=== PATIENT | female | born 1940 | race Caucasian/White ===

== ENCOUNTER → 2019-03-12 | Outpatient (CLI) | payer MEDICARE ==
[2019-03-12 13:14] LABS: HCT 45.6 % (34.0-46.0); HGB 15.4 gm/dL (11.4-16.0); MCHC 33.8 g/dL (31.0-37.0); MCV 91.8 fL (80.0-100.0); Platelet Count 285 k/uL (150-450); RBC 4.96 m/uL (3.80-5.40); RDW 11.7 % (11.5-15.5); WBC 8.5 k/uL (3.8-10.6)
[2019-03-12 13:15] LABS: Appearance,Urine Clear (Clear); Bilirubin,Urine Negative (Negative); Blood,Urine Negative (Negative); Color,Urine Light Yellow; Glucose,Urine (UA) Negative (Negative); Ketones,Urine Negative (Negative); Leukocyte Esterase,Urine Negative (Negative); Nitrite,Urine Negative (Negative); Protein,Urine Negative (Negative); Specific Gravity,Urine 1.014 (1.001-1.035); Urobilinogen,Urine <2.0 mg/dL (<2.0)
[2019-03-12 13:25] LABS: Albumin 4.6 g/dL (3.5-5.0); INR 0.9 (<1.2); Partial Thromboplastin Time 23.7 sec (22.0-30.0); Potassium 4.3 mmol/L (3.5-5.1); Total Bilirubin 0.6 mg/dL (0.2-1.3); Total Protein 7.7 g/dL (6.3-8.2)
== END | disposition home or self-care (01) ==
LOC: LABPAT 10:38
PROVIDERS: ATTEND Orthopaedic Surgery Sports Medicine
DX: Z01.812 Encounter for preprocedural laboratory examination (principal); Z79.01 Long term (current) use of anticoagulants
CPT/HCPCS: 36415; 80053; 81003; 85027; 85610; 85730; 87070

== ENCOUNTER 2019-03-31 13:12 | Day surgery (SDC) | payer MEDICARE ==
[2019-03-16 10:16] VITALS: BMI 25.3
[~2019-03-31 13:12] MED LIST: ACETAMINOPHEN TAB 500 MG TAB PO ONE; DEXAMETHASONE SOD PHOSPHATE 10 MG/ML 1 ML VIAL IV ONE; GABAPENTIN 300 MG CAP PO ONE; HYDROmorphone 0.5 MG/0.5 ML SYRINGE IVP PRN; LIDOCAINE 1% 20 ML VIAL (10MG/ML) FOR IV START INTRADERMA PRN; MELOXICAM 7.5 MG TAB PO ONE; MIDAZOLAM 2 MG/2 ML VIAL IV PRN; ONDANSETRON 4 MG/2 ML VIAL IVP ONE; TRANEXAMIC ACID 1,000 MG in SODIUM CHLORIDE 0.9% 100 ML IVPB ONE; fentaNYL (PF) 50 MCG/ML 2 ML AMP IVP PRN
[2019-03-31 13:52] LABS: Glucose,Whole Blood 96 mg/dL (75-99)
[2019-03-31] MEDS: LACTATED RINGERS 1,000 ML IV SCH ×2 (13:56→20:38)
[2019-03-31] MEDS ORDERED: fentaNYL (PF) 50 MCG/ML 2 ML AMP IV ONE (15:24)
[2019-03-31] MEDS ORDERED: MIDAZOLAM 2 MG/2 ML VIAL IV ONE (15:24)
[2019-03-31] MEDS ORDERED: ROPIVACAINE 0.2%-NS ON-Q PUMP 1,090 MG, EMPTY PAIN BALL 1 EACH MISCELLANE PRN (16:13)
--- NOTE | 2019-03-31 16:15 | P.ANPRN ---
Procedure Note - Anesthesia - Nerve Block Performed Left Adductor Canal Infusion Time Out Performed: Yes Date of Procedure: 03/31/19 Procedure Start Time: 15:25 Location of Patient: PreOp Indication: Acute Post-Operative Pain, Requested by Surgeon Specifically requested for management of pain by DrVíctor: Jaycob Castorena Sedation Type: Sedate with meaningful contact maintained Preparation: Sterile Prep Position: Supine Catheter Depth at Skin (cm): 8 Catheter: Indwelling Needle Types: Pajunk Needle Gauge: 18 Ultrasound used to visualize needle placement: Yes Ultrasound used to observe medication spread: Yes Injectate: 0.5% Ropivacaine (see comment for volume) (20 cc) Blood Aspirated: No Pain Paresthesia on Injection Noted: No Resistance on Injection: Normal Image Stored and Saved: Yes Events: Uneventful and Well Tolerated
[2019-03-31] MEDS: ROPIVACAINE 246.25 MG, EPINEPHrine 0.5 MG, KETOROLAC 30 MG, cloNIDine HCL/PF 80 MCG, WA... MISCELLANE ONE ×10 (16:47→17:30)
[2019-03-31] MEDS ORDERED: DIAZEPAM 5 MG TAB PO PRN (16:49)
[2019-03-31] MEDS ORDERED: NA PHOS,M-B/NA PHOS,DI-BA 133 ML ENEMA RECTAL PRN (16:49)
[2019-03-31] MEDS ORDERED: BISACODYL 10 MG SUPP RECTAL PRN (16:49)
[2019-03-31] MEDS ORDERED: HYDROcodone/APAP 5-325MG 1 EACH TAB PO PRN (16:49)
[2019-03-31] MEDS ORDERED: MAGNESIUM HYDROXIDE 2,400 MG/10 ML CUP PO PRN (16:49)
[2019-03-31] MEDS ORDERED: TEMAZEPAM 15 MG CAP PO PRN (16:49)
[2019-03-31] MEDS ORDERED: hydrOXYzine PAMOATE 25 MG CAP PO PRN (16:49)
[2019-03-31] MEDS ORDERED: NALOXONE 0.4 MG/ML 1 ML VIAL IV PRN (16:49)
[2019-03-31] MEDS ORDERED: ACETAMINOPHEN TAB 325 MG TAB PO PRN (16:49)
[2019-03-31] MEDS ORDERED: traMADol 50 MG TAB PO PRN (16:49)
[2019-03-31] MEDS ORDERED: ONDANSETRON 4 MG/2 ML VIAL IVP PRN (16:49)
[2019-03-31] MEDS ORDERED: HYDROmorphone 0.5 MG/0.5 ML SYRINGE IVP PRN ×3 (16:49)
[2019-03-31] MEDS ORDERED: PROPOFOL 10 MG/ML 50 ML VIAL IV ONE (16:56)
[2019-03-31] MEDS ORDERED: MIDAZOLAM 2 MG/2 ML VIAL ONE (16:56)
[2019-03-31] MEDS ORDERED: TRANEXAMIC ACID 1,000 MG/10 ML VIAL ONE (16:56)
[2019-03-31] MEDS ORDERED: SODIUM CHLORIDE 0.9% 100 ML BAG ONE (16:56)
[2019-03-31] MEDS ORDERED: fentaNYL (PF) 50 MCG/ML 2 ML AMP ONE (16:56)
[2019-03-31] MEDS: ceFAZolin 3,000 MG in SODIUM CHLORIDE 0.9% IRRIGATIO 3,000 ML IRRIGATION ONE ×2 (16:58→20:38)
[2019-03-31] MEDS ORDERED: ceFAZolin 3,000 MG in SODIUM CHLORIDE 0.9% IRRIGATIO 3,000 ML IRRIGATION ONE ×4 (16:58)
[2019-03-31] MEDS ORDERED: LACTATED RINGERS 1,000 ML IV ONE (17:48)
--- NOTE | 2019-03-31 19:28 | XR ---
EXAMINATION TYPE: XR knee limited LT DATE OF EXAM: 03/31/2019 COMPARISON: NONE HISTORY: Postop knee surgery TECHNIQUE: 2 views FINDINGS: There is a left knee prosthesis. Components are in anatomic position. IMPRESSION: No complicating process.
[2019-03-31] MEDS: ASPIRIN 325 MG TAB PO SCH (20:19)
[2019-03-31] MEDS ORDERED: SENNOSIDES-DOCUSATE SODIUM 1 EACH TAB PO SCH (21:00)
--- NOTE | 2019-03-31 22:17 | OP ---
OPERATIVE REPORT DATE OF PROCEDURE: 03/31/2019. SURGEON: Jaycob Castorena MD. INSEAM TRIMMING MACHINE OPERATOR: Remigio MARQUEZ. PREOPERATIVE DIAGNOSIS: Left knee osteoarthrosis. POSTOPERATIVE DIAGNOSIS: Left knee osteoarthrosis. OPERATION: Left total knee arthroplasty. ANESTHESIA: Spinal with sedation. ESTIMATED BLOOD LOSS: 100 mL. TOURNIQUET TIME: 42 minutes at 250 mmHg. COMPLICATIONS: None apparent. DRAINS: None. DISPOSITION: Postanesthesia care unit. INDICATIONS: Melonie is a very pleasant 78-year-old female with longstanding history of left knee pain. History and physical examination are consistent with advanced left knee osteoarthrosis. She has been through significant operative management up to this point. Further treatment options were discussed and she has decided to go forward with the left total knee arthroplasty. The risks of the procedure were discussed with her in detail. These risks include, but are not limited to risk of infection, nerve damage, bleeding, pain, and a small risk of deep vein thrombosis which could lead to fatal pulmonary embolism. There is also risk of loosening of the implant which could require revision operation. The patient understands these risks. All of her questions were answered to her satisfaction. An appropriate informed consent was obtained. DESCRIPTION OF THE PROCEDURE: Patient was identified in preop holding area. Surgical sites marked by both the patient and myself. She was given 2 g of Ancef IV for prophylactic purposes. She was then transferred to the operative suite. She was placed supine on the operative table. A spinal anesthetic was then administered and dosed per the Anesthesia Department without apparent complication. Examination under anesthesia was then performed. The patient was 2-3 degrees shy of full extension. She had 100 degrees of flexion. The medial collateral ligament, lateral collateral ligament and posterior cruciate ligaments were stable. Tourniquet was then placed high on the left upper thigh well-padded in preparation for surgery. The patient's left lower extremity was then prepped and draped in usual sterile fashion. Standard surgical pause undertaken to ensure that we were operating on the correct site and that appropriate preoperative antibiotics were given. All staff in the room were in agreement and we proceeded. The outlines of the patella were marked surgical pen. A planned 12 cm vertical incision centered over the patella was marked with a surgical pen. Leg was then exsanguinated with an Esmarch dressing. The knee was then flexed and the tourniquet was inflated to 250 mmHg. The total tourniquet time for the procedure was 42 minutes Incision was then made with a 10 blade scalpel. Dissection carried down sharply overlying fascia. Great care was taken to minimize the skin flaps. The knee was then exposed using a standard medial parapatellar approach. A small cuff of quadriceps tendon was then left for suturing. She was in a bit of varus preoperatively. A standard medial release was then made. Superficial medial collateral ligament dissected off the bone around the posterior aspect of the proximal tibia. The medial meniscus was then excised as well. Lateral meniscus was also released anteriorly. The leg was then externally rotated. The patella was everted. The knee was flexed. The retractors were then placed to protect the collateral ligaments. I then proceeded to remove the infrapatellar fat pad. This was excised sharply tangentially with the fibers of the patellar tendon. I then proceeded to remove peripheral osteophytes. This was done with a rongeur. I then proceed with the distal femoral resection. She did have near full extension. Planned 9 mm resection was then done. The femoral canal was then entered in the midline of the femur approximately 10 mm anterior to the origin of the posterior cruciate ligament. The maty was then advanced down the center of the femur and placed intramedullary. Based on the preoperative radiographs, the angle between the anatomic and mechanical axis of the femur was approximately 4-5 degrees. The valgus angle of the distal femoral cutting guide was then set at 4 degrees for the left knee. The distal femoral cutting guide was then advanced over the intramedullary maty. This was seated firmly against the femur. I then as mentioned planned to take 9 mm off the distal femur. The cutting block was then secured onto the femur with pins. The jig was removed. The distal femoral cut was made through the slot of the block. The pins were then removed. The distal femoral cutting block was removed. The accuracy of the distal femoral cuts was checked with 2 flat bars. I then proceed with femoral sizing. Posterior referencing sizing guide was held firmly against the resected distal surface of the femur. The posterior condyles were resting on the posterior plane of the guide. The sizing stylus was then placed onto the anterior femur. The size was measured as a size 7. I then assessed for femoral rotation. Plan was for 3 degrees of external rotation. Three degrees of external rotation was placed onto the jig. These holes were then marked. I then confirmed the rotation by 3 separate methods. This was done using the epicondylar axis as well as Whitesides line and posterior referencing. It was deemed that the external rotation was proper. I then went forward with placement of the femoral cutting block. This was placed over the previously placed pin holes. The Ethan wing was then placed onto the anterior slots to ensure that we would not notch the anterior femur with the anterior femoral cut. I then proceed with the anterior femoral cut. This was flush with the anterior cortex of the femur. The posterior cuts were then made followed by the anterior chamfer cut, then the posterior chamfer cut. The cutting block was then removed. Throughout the resection, the collateral ligaments were protected with retractors. I then placed a trial size 7 femur. It was slightly wide mediolateral but the narrow fit was fit very well and the end fit flush with the distal end of the femur. The drill holes were then made. I then proceed with tibial cut. I planned for cruciate-retaining knee. The guide was placed and set for varus valgus and for slope. The height set for approximate 2 mm resection from the medial tibial plateau which was the lower side. I was happy with the alignment and amount of resection. The cutting block was then pinned to the proximal tibia. The alignment maty was removed and the proximal tibia was resected with a reciprocating saw. Again this was done with retractors protecting the collateral ligaments as well as the posterior cruciate ligament. I then proceeded to evaluate the flexion extension gaps. A 10 mm block was placed. The flexion-extension gaps were equal. I then proceeded with resection of posterior osteophytes. She had very extensive posterior osteophytes. This was done using a curved osteotome. This resected the posterior osteophytes and posterior capsule stripping was done off the posterior aspect of the femur. The osteophytes were then removed. I then proceed to resection of patella. The thickness of patella was measured using the caliper. The thickness was 22 mm. The thickness of the anticipated patellar dome was taken into account. Resection was then performed and confirmed to be equal in 4 quadrants using a caliper. Approximately 14 mm of bone remained after resection. A 29 x 8 standard patellar trial was then placed. The holes were drilled. The trial was then placed. I then proceeded to size the tibial plate. A size C tibial plate fit very nicely. I then placed the trial femur in the tibial tray and patellar button. A 10 mm trial tibial insert was also placed. The components fit very nicely. She had full extension and flexion. The extension and flexion gaps were equal and stable to both varus and valgus stress. The patella tracked appropriately. The tibial tray rotation was marked with a Bovie. This was externally rotated properly. I then proceed with tibial preparation. I first drilled the femoral holes and removed femoral component. The tibial tray was then set for proper external rotation as well as mediolateral placement onto the tibia. It was then pinned into place. I then proceeded with punching the keel. I then decided to proceed with cementing of all of our components. The knee was thoroughly irrigated with sterile saline solution via pulse lavage. The lateral geniculate artery was identified and cauterized. All blood was removed from the bone of the tibia femur and patella with pulse lavage. I then proceed with cementing. Two packs of antibiotic bone cement prepared on the back table by the surgical processor. I then proceed with cementing the tibia 1st. Cement was impacted into the keel as well as deeply seated in the bone. A second coat of cement was then placed. The tibia was then impacted into place. Excess cement was removed with Clary's and Joker's. I then proceed with cementing of the femoral component. The femoral component was also cemented using standard technique. Excess cement was removed. A 10 mm trial insert was then placed into the knee. It was brought into full extension with a constant axial load placed until the cement had hardened. The patellar component was then cemented. This was held firmly with a compressive device until the cement had dried. When the cement had dried, the knee was taken out of extension. All excess cement was removed from around the prosthesis. I then trialed the knee with a 10 mm insert. Flexion extension gaps were appropriate. The knee was stable. It came into full extension. I decided to go forward with a 10 mm cross-linked cruciate-retaining tibial insert. Polyethylene was then placed on the tibial tray and locked into place. The knee was then reduced. The knee was again further irrigated with sterile saline solution with antibiotic added. The tourniquet was then deflated. Total tourniquet time for the procedure was 42 minutes at 250 mmHg. Final components were Laurita Persona size 7 narrow cruciate-retaining femoral component, size C tibial tray and a 10 mm medial congruent cruciate-retaining polyethylene insert and a 29 x 8 patella. I then proceeded with closure. Again, the knee was thoroughly irrigated. The quadriceps tendon and medial retinaculum were reapproximated with #2 Ethibond suture. The extensor mechanism was then closed with a running number #2 Quill suture. Subcutaneous tissues were then closed with 2-0 Vicryl interrupted suture. The skin was closed with a running 3-0 Quill suture. Dermabond was applied to the incision. Sterile compressive dressings were then applied. All sponge and needle counts were deemed correct prior to closure. The patient tolerated procedure without apparent complication. She was transferred to recovery room in stable condition. MMODL / IJN: [id number] /
[2019-04-01 02:03] VITALS: RESP 17; TEMP 98
[2019-04-01] MEDS: LACTATED RINGERS 1,000 ML IV SCH ×3 (03:48→04:35)
[2019-04-01 07:00] LABS: Basophils % (A) 0 %; Eosinophils % (A) 0 %; HCT 39.9 % (34.0-46.0); HGB 13.4 gm/dL (11.4-16.0); Lymphocytes % (A) 6 %; MCH 31.1 pg (25.0-35.0); MCHC 33.6 g/dL (31.0-37.0); MCV 92.4 fL (80.0-100.0); Monocytes # (A) 0.7 k/uL (0-1.0); Monocytes % (A) 4 %; Neutrophils # (A) 14.9 k/uL (1.3-7.7); Neutrophils % (A) 90 %; Platelet Count 275 k/uL (150-450); RBC 4.32 m/uL (3.80-5.40); RDW 11.8 % (11.5-15.5); WBC 16.6 k/uL (3.8-10.6)
[2019-04-01] MEDS: ASPIRIN 325 MG TAB PO SCH (07:33)
[2019-04-01] MEDS: HYDROcodone/APAP 10-325MG 1 EACH TAB PO PRN ×2 (07:33→12:37)
[2019-04-01 07:35] VITALS: BP 113/74; PULSE 70
--- NOTE | 2019-04-01 11:14 | P.DS ---
Providers Expected date of discharge: 04/01/19 Attending physician: Jaycob Castorena Consults: 03/31/19 16:49 Consult Physician Routine Consulting Provider: Christ Benitez Consult Reason/Comments: post op medical management Do you want consulting provider notified?: Yes Primary care physician: Marii Woods - Discharge Diagnosis(es) (1) Status post total left knee replacement Patient was admitted to the OR on 03/31/2019 to undergo a left total knee arthroplasty. She had failed conservative measures as an outpatient desired to proceed with elective surgery after given informed consent. She underwent the above procedure which she tolerated well without complication. Postoperative hospital remained without complication. On day of discharge she is afebrile, vital signs stable, labs within acceptable ranges, tolerating by mouth meds and diet, voiding without difficulty, positive flatus, denies abdominal pain or calf pain, pain is controlled on oral pain medication and has no new complaints. Wound is benign, neurovascular status is intact, calf is soft and nontender, abdomen soft and nontender. Review of systems is negative for numbness, tingling, fever, chills, chest pain, shortness of breath, nausea, vomiting, dizziness, headaches, slurred speech or other Current Visit: Yes Status: Acute Priority: Medium Procedures: Left TKA Patient Condition at Discharge: Good Plan - Discharge Summary Discharge Rx Participant: No New Discharge Prescriptions: New Aspirin 325 mg PO BID #60 tab Docusate [Colace] 100 mg PO BID #60 capsule HYDROcodone/APAP 7.5-325MG [Mccarr 7.5-325] 1 - 2 each PO Q6HR PRN #56 tab PRN Reason: Pain No Action Estradiol Cream [Estrace Cream 0.01%] 1 gm VAGINAL Q3D predniSONE 5 mg PO Q2D Triamcinolone 0.5% Cream [Kenalog 0.5% Cream] 1 applic TOPICAL DAILY PRN PRN Reason: Rash Naproxen [Naprosyn] 500 mg PO Q12HR PRN PRN Reason: Pain Methnamine 1 gm PO DAILY Spironolactone [Aldactone] 25 mg PO DAILY Levothyroxine Sodium [Synthroid] 75 mcg PO QAM Atorvastatin [Lipitor] 20 mg PO DAILY Tavares-3 Fatty Acids [Tavares-3] 500 mg PO DAILY Calcium 1200mg/Vit D3 25 Mcg 1 tab PO DAILY Melatonin 10 mg PO HS Discharge Medication List Atorvastatin [Lipitor] 20 mg PO DAILY 03/16/19 [History] Calcium 1200mg/Vit D3 25 Mcg 1 tab PO DAILY 03/16/19 [History] Estradiol Cream [Estrace Cream 0.01%] 1 gm VAGINAL Q3D 03/16/19 [History] Levothyroxine Sodium [Synthroid] 75 mcg PO QAM 03/16/19 [History] Methnamine 1 gm PO DAILY 03/16/19 [History] Naproxen [Naprosyn] 500 mg PO Q12HR PRN 03/16/19 [History] Tavares-3 Fatty Acids [Tavares-3] 500 mg PO DAILY 03/16/19 [History] Spironolactone [Aldactone] 25 mg PO DAILY 03/16/19 [History] Triamcinolone 0.5% Cream [Kenalog 0.5% Cream] 1 applic TOPICAL DAILY PRN 03/16/19 [History] predniSONE 5 mg PO Q2D 03/16/19 [History] Melatonin 10 mg PO HS 03/17/19 [History] Aspirin 325 mg PO BID #60 tab 04/01/19 [Rx] Docusate [Colace] 100 mg PO BID #60 capsule 04/01/19 [Rx] HYDROcodone/APAP 7.5-325MG [Mccarr 7.5-325] 1 - 2 each PO Q6HR PRN #56 tab 04/01/19 [Rx] Follow up Appointment(s)/Referral(s): [facility], [NON-STAFF] - Marii Woods MD [Primary Care Provider] - 04/06/19 8:45 am Jaycob Castorena MD [STAFF PHYSICIAN] - 04/09/19 1:15 pm Activity/Diet/Wound Care/Special Instructions: Keep wound clean and dry Take meds as directed Follow-up with Dr. Castorena in office Weight bear as tolerated May shower in 3 days if no bleeding Discharge Disposition: HOME WITH HOME HEALTH SERVICES
--- NOTE | 2019-04-01 11:44 | P.PN ---
Progress Note - Text 04/01 706am 78-year-old female status post total knee replacement. Patient has an On-Q pump for postop pain control, she was seen and evaluated for pain control, she has a VAS of 2. Doing very well plan to continue On-Q pump infusion
[2019-04-01] MEDS ORDERED: ATORVASTATIN 20 MG TAB PO SCH (13:15)
[2019-04-01] MEDS ORDERED: predniSONE 5 MG TAB PO SCH (14:00)
[2019-04-02] MEDS ORDERED: LEVOTHYROXINE 75 MCG TAB PO SCH (06:30)
[2019-04-02] MEDS ORDERED: MULTIVITAMINS, THERA 1 EACH TAB PO SCH (12:00)
--- NOTE | 2019-04-02 17:20 | P.CONS ---
History of Present Illness - Reason for Consult Consult date: 04/01/19 Medical management Requesting physician: Jaycob Castorena - Chief Complaint Left knee surgery - History of Present Illness Consultation: This is a pleasant 78-year-old patient of Dr. Faviola Woods. Chronic stable medical conditions include hypertension, hypothyroid, hyperlipidemia, granuloma annulare. Patient has undergone left total knee arthroplasty. Pain is reasonably controlled. No nausea vomiting. No chest pain. Did tolerate her diet. Had been up for therapy. Review of systems: GEN.: None EYES: None HEENT: None NECK: None RESPIRATORY: None CARDIOVASCULAR: None GASTROINTESTINAL: None GENITOURINARY: None MUSCULOSKELETAL: Joint pains LYMPHATICS: None HEMATOLOGICAL: None PSYCHIATRY: None NEUROLOGICAL: None Past medical history to include: Hyperlipidemia, hypertension, hypothyroid, granuloma annulare Social history: Does not smoke or drink alcohol Physical examination: VITAL SIGNS: 98, 70, 17, 113/74, 96% on room air GENERAL: BMI 25.8, sitting up comfortable. EYES: Pupils equal. Conjunctiva normal. HEENT: External appearance of nose and ears normal, oral cavity grossly normal. NECK: JVD not raised; masses not palpable. HEART: First and second heart sounds are normal; no edema. LUNGS: Respiratory rate normal; clear to auscultation. ABDOMEN: Soft, nontender, liver spleen not palpable, no masses palpable. PSYCH: Alert and oriented x3; mood and affect normal. MUSCULOSKELETAL: Evidence of OA especially in the hands, dressing over the left knee NEUROLOGICAL: Cranial nerves grossly intact; no facial asymmetry, power and sensation grossly intact. LYMPHATICS: No lymph nodes palpable in the axilla and neck INVESTIGATIONS, reviewed in the clinical context: White count 16.6 hemoglobin 13.4 platelets 275 Lab work from 03/12/2019 shows hemoglobin of 15.4 potassium of 4.3 creatinine 0.8 to Assessment: -Left total knee arthroplasty -Primary osteoarthritis -Hyperlipidemia -Essential hypertension -Hypothyroid -Granuloma annulare Plan: Home medications were resumed. Care was discussed with the patient. Patient's aspirin for DVT prophylaxis per the primary team. Thank you Dr. Castorena Past Medical History Past Medical History: Hyperlipidemia, Hypertension, Skin Disorder, Thyroid Disorder Additional Past Medical History / Comment(s): current steroid use for tx of gr anuloma annulare rash,hx UTIs History of Any Multi-Drug Resistant Organisms: None Reported Past Surgical History: Appendectomy, Cholecystectomy, Hysterectomy Additional Past Surgical History / Comment(s): rachel cataracts Past Anesthesia/Blood Transfusion Reactions: Postoperative Nausea & Vomiting (PONV) Additional Past Anesthesia/Blood Transfusion Reaction / Comm: no hx blood transfusion Past Psychological History: No Psychological Hx Reported Smoking Status: Never smoker Past Alcohol Use History: None Reported Past Drug Use History: None Reported - Past Family History Mother Family Medical History: Cancer Additional Family Medical History / Comment(s): ovarian Father Family Medical History: Myocardial Infarction (OR) Additional Family Medical History / Comment(s): in 50's Medications and Allergies Home Medications Medication Instructions Recorded Confirmed Type Atorvastatin [Lipitor] 20 mg PO DAILY 03/16/19 03/31/19 History Calcium 1200mg/Vit D3 25 Mcg 1 tab PO DAILY 03/16/19 03/31/19 History Estradiol Cream [Estrace Cream 1 gm VAGINAL Q3D 03/16/19 03/31/19 History 0.01%] Levothyroxine Sodium [Synthroid] 75 mcg PO QAM 03/16/19 03/31/19 History Methnamine 1 gm PO DAILY 03/16/19 03/31/19 History Caldwell-3 Fatty Acids [Caldwell-3] 500 mg PO DAILY 03/16/19 03/31/19 History Spironolactone [Aldactone] 25 mg PO DAILY 03/16/19 03/31/19 History Triamcinolone 0.5% Cream [Kenalog 1 applic TOPICAL DAILY PRN 03/16/19 03/31/19 History 0.5% Cream] predniSONE 5 mg PO Q2D 03/16/19 03/31/19 History Melatonin 10 mg PO HS 03/17/19 03/31/19 History Aspirin 325 mg PO BID #60 tab 04/01/19 Rx Docusate [Colace] 100 mg PO BID #60 capsule 04/01/19 Rx HYDROcodone/APAP 7.5-325MG [[place] 1 - 2 each PO Q6HR PRN #56 tab 04/01/19 Rx 7.5-325] Allergies Allergy/AdvReac Type Severity Reaction Status Date / Time amoxicillin Allergy Rash/Hives Verified 03/31/19 13:43 cephalexin [From Keflex] Allergy Rash/Hives Verified 04/01/19 07:35 Sulfa (Sulfonamide Allergy Rash/Hives Verified 03/31/19 13:43 Antibiotics) coconut oil AdvReac headache Verified 03/31/19 13:43 codeine AdvReac Nausea & Verified 03/31/19 13:43 Vomiting tree nut [Pecan] AdvReac headache Verified 03/31/19 13:43 Physical Exam Vitals: Vital Signs Temp Pulse Pulse Resp BP Pulse Ox 04/01/19 06:58 98.0 F 70 17 113/74 96 04/01/19 02:02 98.0 F 86 17 116/73 95 04/01/19 00:00 82 18 03/31/19 21:45 91 124/77 94 L 03/31/19 21:30 94 131/65 03/31/19 21:15 97 132/71 95 03/31/19 21:00 94 136/68 95 03/31/19 20:45 94 133/81 96 03/31/19 20:30 90 137/78 95 03/31/19 20:15 96 124/82 95 03/31/19 20:00 89 121/77 95 03/31/19 19:45 97.8 F 91 127/71 99 03/31/19 19:31 83 16 111/56 97 03/31/19 19:16 83 16 121/58 97 03/31/19 19:04 86 13 117/58 96 03/31/19 18:48 97.1 F L 91 13 119/83 96 03/31/19 13:36 98.7 F 94 16 178/82 97 Intake and Output 03/31/19 04/01/19 04/01/19 22:59 06:59 14:59 Intake Total 1201 240 Output Total 100 Balance 1101 240 Intake: IV 901 Intake, IV Titration 300 Amount Lactated Ringers 1,000 ml 300 @ 100 mls/hr IV .Q10H [facility] Rx#:[id number] Oral 240 Output: Estimated Blood Loss 100 Other: Voiding Method Toilet # Voids 1 Weight 66 kg Results CBC & Chem 7: 04/01/19 06:31 Labs: Abnormal Lab Results - Last 24 Hours (Table) 04/01/19 Range/Units 06:31 WBC 16.6 H (3.8-10.6) k/uL Neutrophils # 14.9 H (1.3-7.7) k/uL
== END 2019-04-01 13:22 | disposition home health service (06) ==
LOC: OR 13:12 → 4SSUR 19:00 → OR 04-01 13:22
PROVIDERS: ATTEND Orthopaedic Surgery Sports Medicine
DX: M17.0 Bilateral primary osteoarthritis of knee (principal); I10 Essential (primary) hypertension; E03.9 Hypothyroidism, unspecified; E78.5 Hyperlipidemia, unspecified; Z79.899 Other long term (current) drug therapy; Z90.49 Acquired absence of other specified parts of digestive tract; Z90.710 Acquired absence of both cervix and uterus; Z98.41 Cataract extraction status, right eye; Z98.42 Cataract extraction status, left eye; Z88.2 Allergy status to sulfonamides; Z88.5 Allergy status to narcotic agent; Z88.1 Allergy status to other antibiotic agents; Z88.0 Allergy status to penicillin; Z91.018 Allergy to other foods; Z82.49 Family history of ischemic heart disease and other diseases of the circulatory system; Z83.3 Family history of diabetes mellitus; L92.0 Granuloma annulare; Z80.41 Family history of malignant neoplasm of ovary; Z79.52 Long term (current) use of systemic steroids; Z79.82 Long term (current) use of aspirin; Z79.890 Hormone replacement therapy
CPT/HCPCS: 27447; 97161; 64448; 76942; 85025; 88300; 73560; C1776; C1713; J2250; J0171; J1100; J0690 ×3; J2405; J3010; J1885; J2795 ×2; J2704; J0735

== ENCOUNTER 2020-06-02 06:10 | Day surgery (SDC) | payer MEDICARE ==
[2020-05-31 14:22] VITALS: BMI 25.4
[~2020-06-02 06:10] MED LIST changes: -ACETAMINOPHEN TAB 500 MG TAB PO ONE; +ACETAMINOPHEN TAB 500 MG TAB PO PRN; -DEXAMETHASONE SOD PHOSPHATE 10 MG/ML 1 ML VIAL IV ONE; +DEXAMETHASONE SOD PHOSPHATE 4 MG/ML 1 ML VIAL IV ONE; -GABAPENTIN 300 MG CAP PO ONE; +HEPARIN SODIUM,PORCINE 5,000 UNIT/ML 1 ML VIAL SQ PRN; -HYDROmorphone 0.5 MG/0.5 ML SYRINGE IVP PRN; +LACTATED RINGERS 1,000 ML IV SCH; -LIDOCAINE 1% 20 ML VIAL (10MG/ML) FOR IV START INTRADERMA PRN; -MELOXICAM 7.5 MG TAB PO ONE; +Pre Op ABX Message 1 EACH MISC MISCELLANE ONE; -TRANEXAMIC ACID 1,000 MG in SODIUM CHLORIDE 0.9% 100 ML IVPB ONE; -fentaNYL (PF) 50 MCG/ML 2 ML AMP IVP PRN
[2020-06-02 06:50] VITALS: RESP 16; TEMP 96.3
[2020-06-02] MEDS ORDERED: LIDOCAINE 1% (10MG/ML) FOR IV START INTRADERMA ONE (07:00)
[2020-06-02] MEDS ORDERED: fentaNYL (PF) 50 MCG/ML 2 ML AMP IV PRN (07:00)
[2020-06-02] MEDS ORDERED: PROPOFOL 10 MG/ML 20 ML VIAL IV ONE (07:51)
[2020-06-02] MEDS ORDERED: MIDAZOLAM 2 MG/2 ML VIAL ONE (07:51)
[2020-06-02] MEDS ORDERED: fentaNYL (PF) 50 MCG/ML 2 ML AMP ONE (07:51)
[2020-06-02] MEDS ORDERED: SODIUM CHLORIDE 0.9% 50 ML with ceFAZolin 2,000 MG IV ONE ×2 (08:05)
[2020-06-02] MEDS ORDERED: BUPIVACAINE (PF) 0.25% 30 ML VIAL SQ ONE (08:14)
--- NOTE | 2020-06-02 08:37 | P.GSHP ---
History of Present Illness H&P Date: 06/02/20 Chief Complaint: Melanoma left upper arm Is a 71-year-old female who presents today for wide local excision melanoma left upper arm. Patient's lesion has been previously biopsied. Past Medical History Past Medical History: Cancer, Hyperlipidemia, Hypertension, Skin Disorder, Thyroid Disorder Additional Past Medical History / Comment(s): granuloma annulare rash,hx UTIs, melanoma History of Any Multi-Drug Resistant Organisms: None Reported Past Surgical History: Appendectomy, Cholecystectomy, Hysterectomy, Joint Replacement Additional Past Surgical History / Comment(s): rachel cataracts, lt knee replacement, rachel carpal tunnel Past Anesthesia/Blood Transfusion Reactions: Motion Sickness, Postoperative Naus ea & Vomiting (PONV) Additional Past Anesthesia/Blood Transfusion Reaction / Comment(s): no hx blood transfusion Smoking Status: Never smoker - Past Family History Mother Family Medical History: Cancer Additional Family Medical History / Comment(s): ovarian Father Family Medical History: Myocardial Infarction ([place]) Additional Family Medical History / Comment(s): in 50's Sister(s) Family Medical History: Diabetes Mellitus, Liver Disease Additional Family Medical History / Comment(s): has had liver transplant Medications and Allergies Home Medications Medication Instructions Recorded Confirmed Type Atorvastatin [Lipitor] 20 mg PO DAILY 03/16/19 06/02/20 History Calcium 1200mg/Vit D3 25 Mcg 1 tab PO DAILY 03/16/19 06/02/20 History Levothyroxine Sodium [Synthroid] 50 mcg PO QAM 03/16/19 06/02/20 History [place]-3 Fatty Acids [[place]-3] 500 mg PO DAILY 03/16/19 06/02/20 History Melatonin 20 mg PO HS 03/17/19 06/02/20 History Ascorbic Acid [Vitamin C] 1,000 mg PO DAILY 05/31/20 06/02/20 History Cholecalciferol [Vitamin D3 (25 25 mcg PO DAILY 05/31/20 06/02/20 History Mcg = 1000 Iu)] Cyanocobalamin (Vitamin B-12) 1,000 mcg PO DAILY 05/31/20 06/02/20 History [Vitamin B-12] Dapsone 25 mg PO DAILY 05/31/20 06/02/20 History Focus Factor 1 tab PO DAILY 05/31/20 06/02/20 History L.acidoph,Paracasei, B.lactis 1 each PO DAILY 05/31/20 06/02/20 History [Probiotic] Magnesium 200 mg PO DAILY 05/31/20 06/02/20 History [place]-3 Fatty Acids/Fish Oil [Fish 1 each PO DAILY 05/31/20 06/02/20 History Oil 1,000 mg Softgel] Spironolactone [Aldactone] 25 mg PO DAILY 05/31/20 06/02/20 History Turmeric Root Extract [Turmeric] 500 mg PO DAILY 05/31/20 06/02/20 History Vits A,C,E/Lutein/Minerals 1 each PO DAILY 05/31/20 06/02/20 History [Ocuvite with Lutein Tablet] Zinc 50 mg PO DAILY 05/31/20 06/02/20 History Allergies Allergy/AdvReac Type Severity Reaction Status Date / Time cephalexin [From Keflex] Allergy Rash/Hives Verified 05/31/20 14:00 Sulfa (Sulfonamide Allergy Rash/Hives Verified 05/31/20 14:00 Antibiotics) coconut oil AdvReac headache Verified 05/31/20 14:00 codeine AdvReac Nausea & Verified 05/31/20 14:00 Vomiting tree nut [Pecan] AdvReac headache Verified 05/31/20 14:00 Surgical - Exam Vital Signs Temp Pulse Resp BP Pulse Ox 96.3 F L 78 16 160/77 96 06/02/20 06:47 06/02/20 06:47 06/02/20 06:47 06/02/20 06:47 06/02/20 06:47 - General well developed, well nourished - Eyes PERRL - ENT normal pinna - Neck no masses - Respiratory normal expansion - Cardiovascular Rhythm: regular - Abdomen Abdomen: soft, non tender - Integumentary 1 cm melanoma left upper arm with biopsy scar Assessment and Plan Assessment: Melanoma left upper arm. We'll perform wide local excision.
--- NOTE | 2020-06-02 08:44 | P.OP ---
Date of Procedure: 06/02/20 Preoperative Diagnosis: Left arm melanoma Postoperative Diagnosis: Left arm melanoma Procedure(s) Performed: I local excision of left arm melanoma Anesthesia: MAC Surgeon: Rc Montes Estimated Blood Loss (ml): 3 Pathology: other (Left arm melanoma with suture on superior portion) Condition: stable Disposition: PACU Description of Procedure: Patient's placed on the operating table in the supine position. She received IV sedation. Her left arm was prepped and draped usual sterile fashion. Elliptical skin incision was made around the left arm melanoma. The lesion measured 4 x 3 cm. Using the cautery subcu tissue divided. The skin was then reapproximated using 2-0 nylon. Sterile dressings applied. Patient top she will was sent to recovery room in stable condition.
[2020-06-02 09:13] VITALS: BP 118/72; PULSE 71
== END 2020-06-02 09:15 | disposition home or self-care (01) ==
LOC: OR 06:10
PROVIDERS: ATTEND Surgery
DX: C43.62 Malignant melanoma of left upper limb, including shoulder (principal); E78.5 Hyperlipidemia, unspecified; E07.9 Disorder of thyroid, unspecified; K08.89 Other specified disorders of teeth and supporting structures; I10 Essential (primary) hypertension; K21.9 Gastro-esophageal reflux disease without esophagitis; Z87.2 Personal history of diseases of the skin and subcutaneous tissue; Z87.440 Personal history of urinary (tract) infections; Z90.49 Acquired absence of other specified parts of digestive tract; Z90.710 Acquired absence of both cervix and uterus; Z96.652 Presence of left artificial knee joint; Z98.41 Cataract extraction status, right eye; Z98.42 Cataract extraction status, left eye; Z98.890 Other specified postprocedural states; Z87.898 Personal history of other specified conditions; Z91.89 Other specified personal risk factors, not elsewhere classified; Z79.899 Other long term (current) drug therapy; Z79.890 Hormone replacement therapy; Z88.1 Allergy status to other antibiotic agents; Z88.2 Allergy status to sulfonamides; Z91.018 Allergy to other foods; Z88.5 Allergy status to narcotic agent; Z97.2 Presence of dental prosthetic device (complete) (partial); Z80.41 Family history of malignant neoplasm of ovary; Z82.49 Family history of ischemic heart disease and other diseases of the circulatory system; Z83.3 Family history of diabetes mellitus; Z83.79 Family history of other diseases of the digestive system
CPT/HCPCS: 88305; 88342; 88341; 11606; J2250; J1644; J1100; J2405; J0690; J3010; J2704

== ENCOUNTER 2020-07-07 06:07 | Day surgery (SDC) | payer MEDICARE ==
[2020-07-05 09:37] VITALS: BMI 25.1
[~2020-07-07 06:07] MED LIST changes: -HEPARIN SODIUM,PORCINE 5,000 UNIT/ML 1 ML VIAL SQ PRN; +HEPARIN SODIUM,PORCINE/PF 5,000 UNIT/0.5 ML SYRINGE SQ PRN
[2020-07-07 06:39] VITALS: TEMP 97.8
[2020-07-07] MEDS ORDERED: LACTATED RINGERS 1,000 ML IV ONE (06:39)
[2020-07-07] MEDS ORDERED: fentaNYL (PF) 50 MCG/ML 2 ML AMP IV PRN (07:00)
[2020-07-07] MEDS ORDERED: MIDAZOLAM 2 MG/2 ML VIAL ONE (07:35)
[2020-07-07] MEDS ORDERED: PROPOFOL 10 MG/ML 20 ML VIAL IV ONE (07:35)
[2020-07-07] MEDS ORDERED: fentaNYL (PF) 50 MCG/ML 2 ML AMP ONE (07:35)
--- NOTE | 2020-07-07 07:45 | P.GSHP ---
History of Present Illness H&P Date: 07/07/20 Chief Complaint: Melanoma left upper arm Is a 71-year-old female who presents today for reexcision of melanoma left upper arm. Patient underwent previous excisional biopsy. Patient's margins have a positive. She presents today for reexcision. Past Medical History Past Medical History: Cancer, Hyperlipidemia, Hypertension, Skin Disorder, Thyroid Disorder Additional Past Medical History / Comment(s): granuloma annulare rash,hx UTIs, melanoma History of Any Multi-Drug Resistant Organisms: None Reported Past Surgical History: Appendectomy, Cholecystectomy, Hysterectomy, Joint Replacement Additional Past Surgical History / Comment(s): rachel cataracts, lt knee replacement, rachel carpal tunnel Past Anesthesia/Blood Transfusion Reactions: Motion Sickness, Postoperative Nausea & Vomiting (PONV) Additional Past Anesthesia/Blood Transfusion Reaction / Comment(s): no hx blood transfusion Smoking Status: Never smoker - Past Family History Mother Family Medical History: Cancer Additional Family Medical History / Comment(s): ovarian Father Family Medical History: Myocardial Infarction ([place]) Additional Family Medical History / Comment(s): in 50's Sister(s) Family Medical History: Diabetes Mellitus, Liver Disease Additional Family Medical History / Comment(s): has had liver transplant Medications and Allergies Home Medications Medication Instructions Recorded Confirmed Type Atorvastatin [Lipitor] 20 mg PO DAILY 03/16/19 07/05/20 History Calcium 1200mg/Vit D3 25 Mcg 1 tab PO DAILY 03/16/19 07/05/20 History Levothyroxine Sodium [Synthroid] 50 mcg PO QAM 03/16/19 07/05/20 History [place]-3 Fatty Acids [[place]-3] 500 mg PO DAILY 03/16/19 07/05/20 History Melatonin 20 mg PO HS 03/17/19 07/05/20 History Ascorbic Acid [Vitamin C] 1,000 mg PO DAILY 05/31/20 07/05/20 History Cholecalciferol [Vitamin D3 (25 25 mcg PO DAILY 05/31/20 07/05/20 History Mcg = 1000 Iu)] Cyanocobalamin (Vitamin B-12) 1,000 mcg PO DAILY 05/31/20 07/05/20 History [Vitamin B-12] Dapsone 25 mg PO DAILY 05/31/20 07/05/20 History Focus Factor 1 tab PO DAILY 05/31/20 07/05/20 History L.acidoph,Paracasei, B.lactis 1 each PO DAILY 05/31/20 07/05/20 History [Probiotic] Magnesium 200 mg PO DAILY 05/31/20 07/05/20 History [place]-3 Fatty Acids/Fish Oil [Fish 1 each PO DAILY 05/31/20 07/05/20 History Oil 1,000 mg Softgel] Spironolactone [Aldactone] 25 mg PO DAILY 05/31/20 07/05/20 History Turmeric Root Extract [Turmeric] 500 mg PO DAILY 05/31/20 07/05/20 History Vits A,C,E/Lutein/Minerals 1 each PO DAILY 05/31/20 07/05/20 History [Ocuvite with Lutein Tablet] Zinc 50 mg PO DAILY 05/31/20 07/05/20 History Allergies Allergy/AdvReac Type Severity Reaction Status Date / Time cephalexin [From Keflex] Allergy Rash/Hives Verified 07/05/20 09:28 Sulfa (Sulfonamide Allergy Rash/Hives Verified 07/05/20 09:28 Antibiotics) coconut oil AdvReac headache Verified 07/05/20 09:28 codeine AdvReac Nausea & Verified 07/05/20 09:28 Vomiting Latex, Natural Rubber AdvReac Rash/Hives Verified 07/05/20 09:42 tree nut [Pecan] AdvReac headache Verified 07/05/20 09:28 Surgical - Exam Vital Signs Temp Pulse Resp BP Pulse Ox 97.8 F 85 18 144/66 94 L 07/07/20 06:37 07/07/20 06:37 07/07/20 06:37 07/07/20 06:37 07/07/20 06:37 - General well developed, well nourished, no distress - Eyes PERRL - ENT normal pinna - Neck no masses - Respiratory normal expansion - Cardiovascular Rhythm: regular - Abdomen Abdomen: soft, non tender - Integumentary Left upper arm scar from previous melanoma excision Assessment and Plan Assessment: History of melanoma from. Will undergo reexcision today.
[2020-07-07] MEDS ORDERED: BUPIVACAINE (PF) 0.25% 30 ML VIAL SQ ONE (07:58)
[2020-07-07] MEDS ORDERED: SODIUM CHLORIDE 0.9% 100 ML with CLINDAMYCIN 600 MG IV ONE ×2 (07:59)
--- NOTE | 2020-07-07 08:13 | P.OP ---
Date of Procedure: 07/07/20 Preoperative Diagnosis: Melanoma left upper arm Postoperative Diagnosis: Melanoma the left upper arm Procedure(s) Performed: Wide local excision of melanoma left upper arm Anesthesia: MAC Surgeon: Rc Montes Estimated Blood Loss (ml): 5 Pathology: other (Left upper arm melanoma) Condition: stable Disposition: PACU Description of Procedure: The patient's placed on the operating table in supine position. She received IV sedation. Her left arm was prepped and draped usual sterile fashion. Elliptical skin incision was made around the the scar. Using a 15 blade this is a size any such cautery the specimen was dissected free. The specimens of pathology is specimens approximately 12 x 1 cm. The Bovie hemostasis. The skin was closed interrupted 3-0 nylon suture. Patient top she will was sent to recovery room stable condition.
[2020-07-07 08:19] VITALS: RESP 16
[2020-07-07 08:30] VITALS: PULSE 85
[2020-07-07 08:44] VITALS: BP 109/65
== END 2020-07-07 09:10 | disposition home or self-care (01) ==
LOC: OR 06:07
PROVIDERS: ATTEND Surgery
DX: C43.62 Malignant melanoma of left upper limb, including shoulder (principal); I10 Essential (primary) hypertension; E78.5 Hyperlipidemia, unspecified; E03.9 Hypothyroidism, unspecified; Z87.440 Personal history of urinary (tract) infections; Z79.890 Hormone replacement therapy; Z79.899 Other long term (current) drug therapy; Z88.5 Allergy status to narcotic agent; Z88.2 Allergy status to sulfonamides; Z88.1 Allergy status to other antibiotic agents; Z91.040 Latex allergy status; Z83.3 Family history of diabetes mellitus; Z82.49 Family history of ischemic heart disease and other diseases of the circulatory system
CPT/HCPCS: 11606; J2250; J1100; J2405; J3010; J2704; J1644